=== PATIENT | female | born 1975 | race Two or more races ===

== ENCOUNTER 2021-01-05 08:33 | Emergency (ER) | payer MEDICAID, OTHER ==
[~2021-01-05] VITALS: Ht 175.3 cm; Wt 99.8 kg
[2021-01-05] MEDS ORDERED: cloNIDine HCL 0.1 MG TAB PO ONE (08:45)
[2021-01-05 09:33] LABS: Basophils # (auto) 0.1 10 ^3/uL (0-0.2); Basophils % (auto) 0.9 % (0.0-2.0); Eosinophils # (auto) 0.1 10 ^3/uL (0-0.8); Eosinophils % (auto) 0.9 % (0.0-7.0); Hematocrit 37.5 % (36.0-46.0); Hemoglobin 12.8 g/dL (12.2-16.2); Lymphocytes % (auto) 30.4 % (10.0-50.0); Mean Corpuscular Hgb Conc. 34.1 g/dL (32.0-36.0); Mean Corpuscular Volume 79.1 fL (80.0-100.0); Monocytes # (auto) 0.3 10 ^3/uL (0-1.3); Monocytes % (auto) 3.9 % (0.0-12.0); Neutrophils # (auto) 4.2 10 ^3/uL (1.6-8.6); Neutrophils % (auto) 63.9 % (37.0-80.0); Red Blood Cells 4.75 10^6/uL (4.0-5.20); Red Cell Distribution Width 16.1 % (11.8-14.3); White Blood Cell 6.5 10^3/uL (4.4-10.8)
[2021-01-05 09:48] LABS: Potassium 3.6 mmol/L (3.5-5.1)
[2021-01-05 09:58] LABS: Albumin 3.6 g/dL (3.4-5.0); BUN/Creatinine Ratio 11.7; Bilirubin, Total 0.4 mg/dL (0.2-1.0); Calcium 8.6 mg/dL (8.5-10.1); Total Protein 8.8 g/dL (6.4-8.2)
[2021-01-05 13:43] VITALS: BP 121/80
== END 2021-01-05 13:45 | disposition home or self-care (01) ==
LOC: ER 08:33
DX: I10 Essential (primary) hypertension (principal)
CPT/HCPCS: 36415; 71046; 80053; 84484; 84702; 85025; 93005